=== PATIENT | male | born 1985 | race Caucasian/White ===

== ENCOUNTER 2018-12-01 03:21 | Emergency (ER) | payer OTHER ==
[2018-12-01 03:37] VITALS: PULSE 88
[2018-12-01 04:07] LABS: BASO % 0.5 % (0.0-2.0); EOS # 0.1 K/uL (0.0-0.7); EOS % 1.1 % (0.0-4.0); HEMOGLOBIN 14.3 g/dL (12.0-18.0); LYMPH # 3.6 K/uL (1.0-4.3); LYMPH % 37.6 % (20.0-40.0); MEAN CELL VOLUME 92.9 fL (80.0-94.0); MEAN CORPUSCULAR HEMOGLOBIN 31.6 pg (27.0-31.0); MEAN CORPUSCULAR HGB CONC 34.1 g/dL (33.0-37.0); MEAN PLATELET VOLUME 7.7 fL (7.2-11.7); MONO # 0.6 K/uL (0.0-0.8); MONO % 6.3 % (0.0-10.0); NEUT # 5.2 K/uL (1.8-7.0); NEUT % 54.5 % (50.0-75.0); RBC 4.51 Mil/uL (4.40-5.90); RED CELL DISTRIBUTION WIDTH 13.2 % (11.5-14.5); WHITE BLOOD COUNT 9.6 K/uL (4.8-10.8)
[2018-12-01 04:54] LABS: URINE BILIRUBIN NEGATIVE (NEGATIVE); URINE BLOOD 3+ (NEGATIVE); URINE COLOR Yellow (YELLOW); URINE GLUCOSE (UA) NORMAL (Normal); URINE LEUKOCYTE ESTERASE NEG Leu/uL (Negative); URINE PROTEIN 1+ mg/dL (NEGATIVE); URINE UROBILINOGEN NORMAL mg/dL (0.2-1.0)
[2018-12-01 05:05] LABS: ALB/GLOB RATIO 1.4 (1.0-2.1); ALBUMIN 4.9 g/dL (3.5-5.0); ALT/SGPT 45 U/L (21-72); AST/SGOT 28 U/L (17-59); BLOOD UREA NITROGEN 23 mg/dL (9-20); CALCIUM 9.4 mg/dl (8.6-10.4); GFR NON-AFRICAN AMERICAN > 60; LIPASE 142 U/L (23-300)
--- NOTE | 2018-12-01 05:06 | C.PDOC ---
History Of Present Illness 33 year old male presents to the ER with a complaint of intermittent abdominal pain. Patient states at 1800 he was having a bowel movement, when he finished he felt a sharp pain to the RLQ, he did not think much of it and it calmed down on its own. At 2300 he was having another bowel movement with a little diarrhea and at approximately 0200 he began having severe RLQ pain, had two episodes of vomiting, and believes he saw blood in his urine. Patient states the pain is nonradiating and is not present at this time. He reports Hx of appendectomy when he was a teenager. Denies fever or chills. Chief Complaint (Nursing): Abdominal Pain History Per: Patient History/Exam Limitations: no limitations Onset/Duration Of Symptoms: Hrs, Intermittent Episodes Current Symptoms Are (Timing): Gone Location Of Pain/Discomfort: RLQ Quality Of Discomfort: Sharp Associated Symptoms: Vomiting (x2), Diarrhea, Other (Blood in urine). denies: Fever, Chills Recent travel outside of the [place]: No Past Medical History Reviewed: Historical Data, Nursing Documentation, Vital Signs Vital Signs: Last Vital Signs Temp 97.9 F 12/01/18 03:27 Pulse 88 12/01/18 03:27 Resp 20 12/01/18 03:27 BP 164/97 H 12/01/18 03:27 Pulse Ox 100 12/01/18 03:27 Family History: States: Unknown Family Hx - Social History Hx Alcohol Use: No Hx Substance Use: No Review Of Systems Constitutional: Negative for: Fever, Chills Eyes: Negative for: Pain, Redness ENT: Negative for: Mouth Swelling Cardiovascular: Negative for: Chest Pain Respiratory: Negative for: Cough, Shortness of Breath Gastrointestinal: Positive for: Vomiting, Abdominal Pain, Diarrhea Genitourinary: Positive for: Hematuria. Negative for: Dysuria Musculoskeletal: Negative for: Back Pain Skin: Negative for: Rash Neurological: Negative for: Weakness, Numbness Physical Exam - Physical Exam Appears: Well, Non-toxic, No Acute Distress Skin: Normal Color, Warm, No Rash Head: Atraumatic, Normacephalic Eye(s): bilateral: Normal Inspection, PERRL, EOMI Nose: Normal Oral Mucosa: Moist Neck: Normal ROM, Supple Chest: Symmetrical Cardiovascular: Rhythm Regular Respiratory: No Accessory Muscle Use, Other (Normal inspiratory effort) Gastrointestinal/Abdominal: Soft, No Tenderness, Other (Old appendectomy scar) Back: No CVA Tenderness Neurological/Psych: Oriented x3, Normal Speech, Normal Cranial Nerves (Grossly intact) ED Course And Treatment - Laboratory Results Result Diagrams: 12/01/18 04:00 12/01/18 04:47 O2 Sat by Pulse Oximetry: 100 (Room air) Pulse Ox Interpretation: Normal Medical Decision Making Medical Decision Making: Blood work and urinalysis ordered. this patient has been pain free since arriving in the ED. his UA showed blood but no signs of infection. he most likely passed the stone. he will be given a strainer and pain meds upon discharge and referral to urology. Disposition Counseled Patient/Family Regarding: Studies Performed, Diagnosis, Need For Followup, Rx Given - Disposition Referrals: Keke Muñiz MD [Staff Provider] - Disposition: HOME/ ROUTINE Disposition Time: 05:37 Condition: IMPROVED Prescriptions: RX: Ibuprofen [Motrin Tab] 800 mg PO TID PRN #21 tab PRN Reason: Pain, Moderate (4-7) Tamsulosin [Flomax] 0.4 mg PO DAILY #4 cap Instructions: Kidney Stones (DC), How to Strain Your Urine Forms: [facility] (Malay), General Discharge Instructions - Clinical Impression Clinical Impression: Renal and ureteric calculus - PA / DIRECTOR OF PHYSICAL SECURITY / Resident Statement MD/DO has reviewed & agrees with the documentation as recorded. - Scribe Statement The provider has reviewed the documentation as recorded by the Scribe Juan Carlos Guzman All medical record entries made by the Scribe were at my direction and personally dictated by me. I have reviewed the chart and agree that the record accurately reflects my personal performance of the history, physical exam, medical decision making, and the department course for this patient. I have also personally directed, reviewed, and agree with the discharge instructions and disposition.
[2018-12-01 05:09] LABS: URINE CLARITY Hazy (Clear)
[2018-12-01 06:10] VITALS: BP 145/83; RESP 16; TEMP 98.5
[2018-12-01 06:59] VITALS: O2SAT 100
== END 2018-12-01 06:10 | disposition home or self-care (01) ==
LOC: C.ER 03:21
DX: N20.2 Calculus of kidney with calculus of ureter (principal)

== ENCOUNTER 2018-12-01 16:16 | Emergency (ER) | payer OTHER ==
[2018-12-01 16:34] VITALS: TEMP 98.3
[2018-12-01] MEDS ORDERED: Sodium Chloride 0.9% 1,000 ML IV ONE (17:08)
--- NOTE | 2018-12-01 17:18 | C.PDOC ---
History Of Present Illness 33 year old male presents to the emergency department with complaints of right flank pain since yesterday. Patient was evaluated at [facility] yesterday where a CT scan was not ordered and the patient was discharged home after he felt better. Patient states that the pain returned today, so he returns to the ED with the same complaints. Patient reports nausea and vomiting, but denies diarrhea, fever, chills, and recent surgeries. Time Seen by Provider: 12/01/18 17:02 Chief Complaint (Nursing): Male Genitourinary History Per: Patient History/Exam Limitations: no limitations Onset/Duration Of Symptoms: Days (2) Current Symptoms Are (Timing): Still Present Quality Of Discomfort: "Pain" Associated Symptoms: Nausea, Vomiting, Back Pain. denies: Fever, Chills, Diarrhea Past Medical History Reviewed: Historical Data, Nursing Documentation, Vital Signs Vital Signs: Last Vital Signs Temp 98.3 F 12/01/18 16:32 Pulse 108 H 12/01/18 16:32 Resp 20 12/01/18 16:32 BP 159/95 H 12/01/18 16:32 Pulse Ox 100 12/01/18 16:32 - Medical History PMH: No Chronic Diseases Surgical History: Appendectomy Family History: States: No Known Family Hx - Social History Hx Alcohol Use: No Hx Substance Use: No - Immunization History Hx Tetanus Toxoid Vaccination: No Hx Influenza Vaccination: No Hx Pneumococcal Vaccination: No Review Of Systems Except As Marked, All Systems Reviewed And Found Negative. Gastrointestinal: Positive for: Abdominal Pain Musculoskeletal: Positive for: Back Pain (right flank pain) Physical Exam - Physical Exam Appears: Non-toxic, No Acute Distress Skin: Normal Color, Warm, Dry Head: Atraumatic, Normacephalic Eye(s): bilateral: Normal Inspection, PERRL, EOMI Oral Mucosa: Moist Neck: Normal, Supple Chest: Symmetrical, No Tenderness Cardiovascular: Rhythm Regular, No Murmur Respiratory: Normal Breath Sounds, No Rales, No Rhonchi, No Wheezing Gastrointestinal/Abdominal: Soft, Tenderness (right lower quadrant tenderness), No Guarding, No Rebound, No Other (McBurney's Point Tenderness) Back: CVA Tenderness (right-sided) Extremity: Normal ROM Neurological/Psych: Oriented x3, Normal Speech, Normal Cognition ED Course And Treatment - Laboratory Results Result Diagrams: 12/01/18 17:25 12/01/18 17:25 O2 Sat by Pulse Oximetry: 100 (RA) Pulse Ox Interpretation: Normal - CT Scan/US CT Abdomen and Pelvis Other Rad Studies (CT/US): Read By Radiologist, Radiology Report Reviewed CT/US Interpretation: IMPRESSION: Mild right-sided hydronephrosis secondary to a small approximately 2.8 mm calcification at appears to be located in the right posterior margin of the collapsed bladder lumen or possibly within the intram ural portion of the right UVJ.. There is mild right-sided perinephric infiltration and induration of the proximal right ureter.. Urinary bladder is incompletely distended which in part accounts for thick-walled appearance however muscular hypertrophy may contribute. Rule out cystitis and therefore clinical correlation with urinalysis recommended. There appears to be a few scattered colonic diverticula along the sigmoid colon however no radiographic evidence of acute diverticulitis. Medical Decision Making Medical Decision Making: Plan: CT Abdomen and Pelvis Chemistry CBC NaCl IV Fluids Toradol 30mg IVP Zofran 4mg IVP Urinalysis 1845 - patient states improvement. will discharge home. Advised to follow up with urology within 2 days Disposition Counseled Patient/Family Regarding: Studies Performed, Diagnosis, Need For Followup, Rx Given - Disposition Referrals: Keke Muñiz MD [Staff Provider] - Disposition: HOME/ ROUTINE Disposition Time: 18:46 Condition: STABLE Additional Instructions: follow up with urology within 2 days call to make an appointment take medications as prescribed return to ER if symptoms worsens or progress Prescriptions: Acetaminophen/Codeine [Tylenol/Codeine 300 MG/30 MG] 1 tab PO Q6H PRN #12 tab PRN Reason: Pain, Severe (8-10) Ondansetron ODT [Zofran ODT] 4 mg PO TID PRN #12 odt PRN Reason: Nausea/Vomiting Instructions: Renal Colic (DC) Forms: [facility] (Greenlandic), General Discharge Instructions - Clinical Impression Clinical Impression: Renal and ureteric calculus - Scribe Statement The provider has reviewed the documentation as recorded by the Scribe (Remi Navarro) Provider Attestation: All medical record entries made by the Scribe were at my direction and personally dictated by me. I have reviewed the chart and agree that the record accurately reflects my personal performance of the history, physical exam, medical decision making, and the department course for this patient. I have also personally directed, reviewed, and agree with the discharge instructions and disposition.
[2018-12-01 17:28] LABS: BASO % 0.3 % (0.0-2.0); EOS % 0.1 % (0.0-4.0); HEMOGLOBIN 13.6 g/dL (12.0-18.0); LYMPH # 1.1 K/uL (1.0-4.3); LYMPH % 8.4 % (20.0-40.0); MEAN CELL VOLUME 91.8 fL (80.0-94.0); MEAN CORPUSCULAR HEMOGLOBIN 30.7 pg (27.0-31.0); MEAN CORPUSCULAR HGB CONC 33.5 g/dL (33.0-37.0); MEAN PLATELET VOLUME 7.7 fL (7.2-11.7); MONO # 0.6 K/uL (0.0-0.8); MONO % 4.2 % (0.0-10.0); NEUT # 11.5 K/uL (1.8-7.0); NRBC % 0.1 % (0.0-2.0); PLATELET COUNT 305 K/uL (130-400); RBC 4.41 Mil/uL (4.40-5.90); RED CELL DISTRIBUTION WIDTH 13.3 % (11.5-14.5); WHITE BLOOD COUNT 13.2 K/uL (4.8-10.8)
[2018-12-01 17:37] LABS: URINE BILIRUBIN NEGATIVE (NEGATIVE); URINE BLOOD 1+ (NEGATIVE); URINE CLARITY Clear (Clear); URINE COLOR Yellow (YELLOW); URINE GLUCOSE (UA) NORMAL (Normal); URINE HYALINE CAST 0-2 /lpf (0-2); URINE LEUKOCYTE ESTERASE NEG Leu/uL (Negative); URINE PROTEIN 1+ mg/dL (NEGATIVE); URINE UROBILINOGEN NORMAL mg/dL (0.2-1.0)
[2018-12-01] MEDS ORDERED: Sodium Chloride 0.9% 1,000 ML ONE (17:39)
[2018-12-01 17:43] LABS: ALB/GLOB RATIO 1.6 (1.0-2.1); ALT/SGPT 36 U/L (21-72); AST/SGOT 23 U/L (17-59); BLOOD UREA NITROGEN 18 mg/dL (9-20); CALCIUM 9.4 mg/dl (8.6-10.4); GFR NON-AFRICAN AMERICAN > 60; LIPASE 84 U/L (23-300)
--- NOTE | 2018-12-01 17:55 | CT ---
Date of service: 12/01/2018 PROCEDURE: CT Abdomen and Pelvis.. HISTORY: Abdominal pain COMPARISON: None. TECHNIQUE: Contiguous axial images of the abdomen and pelvis performed without oral or intravenous contrast material vented additional 2D sagittal and coronal reformats generated. Radiation dose: Total exam DLP = 581.84 mGy-cm. This CT exam was performed using one or more of the following dose reduction techniques: Automated exposure control, adjustment of the mA and/or kV according to patient size, and/or use of iterative reconstruction technique. 6. FINDINGS: LOWER THORAX: Heart size is within range of normal. No significant pericardial effusion. There is a tiny hiatal hernia. Small nodular opacity seen in the right posterior sulcus associate with some linear atelectasis and or scarring. Lung. Minimal linear scarring also seen in the right middle lobe region. No effusion or basilar pneumothorax. LIVER: Exhibits normal size and attenuation pattern without mass collection or calcification.. GALLBLADDER AND BILE DUCTS: Gallbladder is physiologically distended. No evidence of intraluminal gallbladder calculi.. PANCREAS: Pancreas appears slightly atrophic and fatty replaced. There are no pancreatic masses collections or calcifications.. SPLEEN: Spleen exhibits normal size and attenuation pattern without mass collection or calcification.. ADRENALS: There are no adrenal lesions.. KIDNEYS AND URETERS: There is mild right-sided hydronephrosis secondary to a small approximately 2.8 mm calcification at appears to be located in the right posterior margin of the collapsed bladder lumen or possibly within the intramural portion of the right UVJ.. There is mild right-sided perinephric infiltration and induration of the proximal right ureter. No additional renal calculi are seen. No evidence of left-sided hydronephrosis. BLADDER: Urinary bladder is incompletely distended which in part accounts for thick-walled appearance. Muscular hypertrophy may contribute. Cystitis not excluded. Correlation with urinalysis recommended. There is a small approximately 2.7 mm calcification either within the intramural portion of the right UVJ or within the posterior bladder lumen on the right-side. Clinical correlation recommended.. REPRODUCTIVE: Unremarkable as visualized.. APPENDIX: Normal-appearing appendix. BOWEL: Evaluation of the bowel is somewhat limited due to the lack of oral contrast material. Stomach is partially distended with food debris liquid and air. Visualized loops of small bowel exhibit normal contour and caliber. No evidence of acute mechanical small bowel obstruction. Stool and air seen throughout the large bowel. No definitive evidence of mural wall thickening. There appears to be a few colonic diverticula along the sigmoid colon however no radiographic evidence of acute diverticulitis. PERITONEUM: Unremarkable. No fluid collection. No free air. Small fat containing umbilical hernia LYMPH NODES: Few tiny nonspecific retroperitoneal and mesenteric lymph nodes are present. VASCULATURE: Unremarkable. No aortic aneurysm. No aortic atherosclerotic calcification or mural plaque present. BONES: Mild multilevel degenerative spondylosis of the lower thoracic and lumbar spine. OTHER FINDINGS: None. IMPRESSION: Mild right-sided hydronephrosis secondary to a small approximately 2.8 mm calcification at appears to be located in the right posterior margin of the collapsed bladder lumen or possibly within the intramural portion of the right UVJ.. There is mild right-sided perinephric infiltration and induration of the proximal right ureter.. Urinary bladder is incompletely distended which in part accounts for thick-walled appearance however muscular hypertrophy may contribute. Rule out cystitis and therefore clinical correlation with urinalysis recommended There appears to be a few scattered colonic diverticula along the sigmoid colon however no radiographic evidence of acute diverticulitis.
[2018-12-01] MEDS ORDERED: Lidocaine 80 MG in Sodium Chloride 0.9% 100 ML IV STA (17:56)
[2018-12-01 17:59] LABS: LYMPHOCYTE 4 % (20-40); MONOCYTE 4 % (0-10); NEUTROPHIL 90 % (50-75); PLATELET ESTIMATE NORMAL (NORMAL); REACTIVE LYMPHOCYTES 2 % (0-0); TOTAL CELLS COUNTED 100; TOXIC GRANULATION PRESENT
[2018-12-01 19:19] VITALS: BP 140/78; PULSE 84; RESP 16
[2018-12-03 16:16] VITALS: O2SAT 100
== END 2018-12-01 19:17 | disposition home or self-care (01) ==
LOC: C.ER 16:16
DX: N20.2 Calculus of kidney with calculus of ureter (principal)
CPT/HCPCS: 74176; 80053; 81001; 83690; 85025; 96361; 96374; 96375; 99285; J1885; J2405; J7030